=== PATIENT | female | born 1950 | race Caucasian/White ===

== ENCOUNTER → 2017-02-11 | Outpatient (CLI) | payer OTHER, BC ==
[~2017-02-11] MED LIST: ATENOLOL25 MG PO; LAC PO; LIPI10 PO; MACROBID100 MG PO; XARELTO STARTER20 MG PO; XARELTO10 M1 PO; ZESTRIL10 MG PO
== END | disposition home or self-care (01) ==
LOC: LB 15:04
DX: I48.91 Unspecified atrial fibrillation (principal)

== ENCOUNTER → 2017-02-21 | Outpatient (CLI) | payer OTHER, BC | END | disposition home or self-care (01) | LOC: LB 14:34 | DX: I48.91 Unspecified atrial fibrillation (principal) ==

== ENCOUNTER → 2017-03-02 | Outpatient (CLI) | payer OTHER, BC | END | disposition home or self-care (01) | LOC: LB 11:50 | DX: I48.91 Unspecified atrial fibrillation (principal) ==

== ENCOUNTER → 2017-03-04 | Outpatient (CLI) | payer OTHER, BC | END | disposition home or self-care (01) | LOC: LB 09:27 | DX: I48.91 Unspecified atrial fibrillation (principal) ==

== ENCOUNTER → 2017-03-11 | Outpatient (CLI) | payer OTHER, BC | END | disposition home or self-care (01) | LOC: LB 09:34 | DX: I48.91 Unspecified atrial fibrillation (principal) ==

== ENCOUNTER → 2017-03-18 | Outpatient (CLI) | payer OTHER, BC | END | disposition home or self-care (01) | LOC: LB 10:48 | DX: I48.91 Unspecified atrial fibrillation (principal) ==

== ENCOUNTER → 2017-04-04 | Outpatient (CLI) | payer OTHER, BC | END | disposition home or self-care (01) | LOC: LB 14:35 | DX: I48.91 Unspecified atrial fibrillation (principal) ==

== ENCOUNTER → 2017-04-12 | Outpatient (CLI) | payer OTHER, BC | END | disposition home or self-care (01) | LOC: LB 12:26 | DX: I48.91 Unspecified atrial fibrillation (principal) ==

== ENCOUNTER → 2017-04-28 | Outpatient (CLI) | payer OTHER, BC | END | disposition home or self-care (01) | LOC: LB 14:14 | DX: I48.91 Unspecified atrial fibrillation (principal) ==

== ENCOUNTER → 2017-05-17 | Outpatient (CLI) | payer OTHER, BC | END | disposition home or self-care (01) | LOC: LB 15:45 | DX: I48.91 Unspecified atrial fibrillation (principal) ==

== ENCOUNTER 2017-05-24 23:17 | Emergency (ER) | payer OTHER, BC ==
[2017-05-25 01:06] VITALS: BP 151/70
== END 2017-05-25 01:06 | disposition home or self-care (01) ==
LOC: ED 23:17
DX: H11.32 Conjunctival hemorrhage, left eye (principal); I10 Essential (primary) hypertension; Z79.01 Long term (current) use of anticoagulants; Z79.899 Other long term (current) drug therapy; Z79.82 Long term (current) use of aspirin

== ENCOUNTER → 2017-08-26 | Outpatient (CLI) | payer OTHER, BC | END | disposition home or self-care (01) | LOC: LB 11:13 | DX: I48.91 Unspecified atrial fibrillation (principal) ==

== ENCOUNTER → 2017-10-20 | Outpatient (CLI) | payer OTHER, BC | END | disposition home or self-care (01) | LOC: MA 12:37 | DX: I48.91 Unspecified atrial fibrillation (principal); Z12.31 Encounter for screening mammogram for malignant neoplasm of breast | CPT/HCPCS: G0202 ==

== ENCOUNTER 2017-10-31 23:50 | Emergency (ER) | payer OTHER, BC ==
[2017-11-01 03:24] VITALS: BP 159/91
== END 2017-11-01 03:24 | disposition home or self-care (01) ==
LOC: ED 23:50
DX: M26.621 Arthralgia of right temporomandibular joint (principal); I25.10 Atherosclerotic heart disease of native coronary artery without angina pectoris; I10 Essential (primary) hypertension; E78.00 Pure hypercholesterolemia, unspecified; Z88.5 Allergy status to narcotic agent; Z79.01 Long term (current) use of anticoagulants
CPT/HCPCS: J1885

== ENCOUNTER → 2017-11-11 | Outpatient (CLI) | payer OTHER, BC | END | disposition home or self-care (01) | LOC: MA 12:28 | PROC: BH01ZZZ Plain Radiography of Left Breast (ICD-10-PCS; principal; 2017-11-11) | DX: R92.2 Inconclusive mammogram (principal) | CPT/HCPCS: G0206 ==

== ENCOUNTER 2018-03-24 19:13 | Inpatient (IN) | payer OTHER, BC ==
[~2018-03-24] VITALS: Ht 157.5 cm; Wt 72.8 kg
[2018-03-24 19:17] VITALS: Ht 157.5 cm; Wt 72.8 kg
[2018-03-24 20:54] LABS: BASOPHIL % 0.5 % (0-2); PLATELET COUNT 322 x10^3mcL (130-400); RED CELL DISTRIBUTION WIDTH 12.8 % (11.5-14.5)
[2018-03-24 20:59] LABS: CALCIUM 9.8 mg/dL (8.5-10.1); CARBON DIOXIDE 31.9 mmol/L (21-32); CREATININE SERUM 1.1 mg/dL (0.6-1.0); POTASSIUM SERUM 4.7 mmol/L (3.5-5.1)
[2018-03-24 21:06] LABS: ALBUMIN 3.9 g/dL (3.4-5.0); BILIRUBIN TOTAL 0.4 mg/dL (0.20-1.00); CHOLESTEROL/HDL RATIO 3.1; TOTAL PROTEIN, SERUM 7.1 g/dL (6.4-8.2)
[2018-03-24 21:14] LABS: T3 TOTAL 1.33 ng/mL
[2018-03-24 21:29] LABS: FREE T4 0.98 ng/dL (0.76-1.46); FREE THYROXINE INDEX 2.8 ug/dL (1.4-4.5); T4(THYROXINE) 8.5 ug/dL (4.7-13.3)
[2018-03-24 21:36] LABS: UA SPECIFIC GRAVITY <=1.005 (1.005-1.035); microscopic required? YES; urine erythrocyte 1+ (NEGATIVE)
[2018-03-24] MEDS ORDERED: COUMADIN1 MG PO ×2 (21:47→21:48)
[2018-03-24] MEDS ORDERED: ASPIR 8181 MG PO (21:48)
[2018-03-24 22:37] VITALS: BP 135/67
[2018-03-25 00:14] LABS: MAGNESIUM 1.6 mg/dL (1.8-2.4); PHOSPHOROUS 3.2 mg/dL (2.5-4.9)
[2018-03-25 05:13] VITALS: BP 127/66
[2018-03-25 07:06] LABS: BASOPHIL % 0.4 % (0-2); PLATELET COUNT 265 x10^3mcL (130-400); RED CELL DISTRIBUTION WIDTH 12.8 % (11.5-14.5)
[2018-03-25 10:43] VITALS: BP 140/61
[2018-03-25] MEDS ORDERED: LAC PO (11:15)
[2018-03-25] MEDS ORDERED: BACTRIM1 TAB PO (11:16)
[2018-03-25 12:40] LABS: CALCIUM 9.1 mg/dL (8.5-10.1); CARBON DIOXIDE 27.1 mmol/L (21-32); CHLORIDE SERUM 111 mmol/L (98-107); CREATININE SERUM 0.7 mg/dL (0.6-1.0); GFR1 > 60 mL/min; GLUCOSE SERUM 96 mg/dL (74-106); MAGNESIUM 1.6 mg/dL (1.8-2.4); PHOSPHOROUS 3.3 mg/dL (2.5-4.9); SODIUM SERUM 144 mmol/L (136-145)
[2018-03-25 13:37] VITALS: BP 108/59
== END 2018-03-25 15:40 | disposition home or self-care (01) | DRG 555 ==
LOC: ED 19:13 → DU 21:59
PROVIDERS: Family Medicine; Specialist
DX: M25.512 Pain in left shoulder (principal); N17.0 Acute kidney failure with tubular necrosis; N39.0 Urinary tract infection, site not specified; I48.0 Paroxysmal atrial fibrillation; I10 Essential (primary) hypertension; E83.42 Hypomagnesemia; I08.8 Other rheumatic multiple valve diseases; E78.1 Pure hyperglyceridemia; Z79.01 Long term (current) use of anticoagulants; Z79.82 Long term (current) use of aspirin; Z68.29 Body mass index [BMI] 29.0-29.9, adult
CPT/HCPCS: 83880; 84439; J0696; J7030

== ENCOUNTER → 2018-04-03 | Outpatient (CLI) | payer OTHER, BC ==
[~2018-04-03] MED LIST changes: +ASPIR 8181 MG PO; +BACTRIM1 TAB PO; +COUMADIN1 MG PO
== END | disposition home or self-care (01) ==
LOC: CA 12:49
DX: R07.9 Chest pain, unspecified (principal); I10 Essential (primary) hypertension; R94.31 Abnormal electrocardiogram [ECG] [EKG]
CPT/HCPCS: A9500

== ENCOUNTER → 2018-10-20 | Outpatient (CLI) | payer OTHER, BC ==
[2018-10-20 12:04] LABS: BASOPHIL % 0.6 % (0-2); PLATELET COUNT 301 x10^3mcL (130-400)
[2018-10-20 12:14] LABS: ALBUMIN 3.9 g/dL (3.4-5.0); ALKALINE PHOSPHATASE 101 U/L (46-116); ALT/SGPT 29 U/L (14-59); AST/SGOT 20 U/L (15-37); BILIRUBIN TOTAL 0.69 mg/dL (0.20-1.00); CALCIUM 9.3 mg/dL (8.5-10.1); CARBON DIOXIDE 29.3 mmol/L (21-32); CHLORIDE SERUM 107 mmol/L (98-107); CHOLESTEROL 193 mg/dL (<200); CHOLESTEROL/HDL RATIO 3.2; CREATININE SERUM 0.9 mg/dL (0.6-1.0); FREE T4 0.94 ng/dL (0.76-1.46); GFR1 > 60 mL/min; GLUCOSE SERUM 111 mg/dL (74-106); HDL CHOLESTEROL 60 mg/dL (40-60); POTASSIUM SERUM 4.2 mmol/L (3.5-5.1); SODIUM SERUM 144 mmol/L (136-145); TOTAL PROTEIN, SERUM 7.3 g/dL (6.4-8.2)
[2018-10-20 12:27] LABS: TRIGLYCERIDES 207 mg/dL (<150)
[2018-10-20 12:44] LABS: UA SPECIFIC GRAVITY 1.025 (1.005-1.035); microscopic required? YES; urine erythrocyte 1+ (NEGATIVE)
== END | disposition home or self-care (01) ==
LOC: LB 11:22
DX: E78.5 Hyperlipidemia, unspecified (principal); I10 Essential (primary) hypertension; I48.0 Paroxysmal atrial fibrillation
CPT/HCPCS: 84439

== ENCOUNTER → 2019-05-07 | Outpatient (CLI) | payer OTHER, BC | END | disposition home or self-care (01) | LOC: MA 10:15 | PROC: BH02ZZZ Plain Radiography of Bilateral Breasts (ICD-10-PCS; principal; 2019-05-07) | DX: Z12.31 Encounter for screening mammogram for malignant neoplasm of breast (principal) | CPT/HCPCS: 77067 ==

== ENCOUNTER 2019-10-27 10:08 | Emergency (ER) | payer OTHER, BC ==
[~2019-10-27] VITALS: Ht 157.5 cm; Wt 73.9 kg
[2019-10-27 10:24] VITALS: BP 122/65; Ht 157.5 cm; Wt 73.9 kg
== END 2019-10-27 12:05 | disposition home or self-care (01) ==
LOC: ED 10:08
DX: L02.413 Cutaneous abscess of right upper limb (principal); I10 Essential (primary) hypertension; E78.00 Pure hypercholesterolemia, unspecified; I48.91 Unspecified atrial fibrillation; Z98.890 Other specified postprocedural states; Z90.710 Acquired absence of both cervix and uterus; Z88.5 Allergy status to narcotic agent
CPT/HCPCS: J2001